=== PATIENT | female | born 1975 | race Caucasian/White ===

== ENCOUNTER 2022-02-27 18:32 | Emergency (ER) | payer SELFPAY ==
[~2022-02-27] VITALS: Ht 165.1 cm; Wt 104.0 kg
[2022-02-27 21:54] VITALS: BP 157/87
[2022-02-27 22:01] VITALS: BP 147/85
[2022-02-27 22:31] LABS: URINE BILIRUBIN - DIPSTICK NEGATIVE (NEGATIVE); URINE BLOOD DIPSTICK NEGATIVE (NEGATIVE); URINE COLOR YELLOW; URINE GLUCOSE - DIPSTICK NEGATIVE (NEGATIVE); URINE KETONE 40 mg/dL (NEGATIVE); URINE LEUK ESTERASE NEGATIVE (NEGATIVE); URINE PROTEIN - DIPSTICK TRACE mg/dL (NEG-TRACE); URINE SPECIFIC GRAVITY >=1.030; URINE UROBILINOGEN - DIPSTICK 0.2 E.U./dL (0.2)
[2022-02-27 22:37] LABS: URINE NITRITE - DIPSTICK NEGATIVE (Negative)
[2022-02-27] MEDS ORDERED: TAM75CAP PO (23:48)
[2022-02-27] MEDS ORDERED: AMOX/K CLAV875 M1 PO (23:52)
[2022-02-27] MEDS ORDERED: FLOXIN OTIC0.3 % AD (23:52)
[2022-02-28 00:30] VITALS: BP 132/70
[2022-02-28] MEDS ORDERED: ALBUTEROL SUL0.083 % IN (04:15)
[2022-02-28] MEDS ORDERED: AMOUR (04:16)
== END 2022-02-28 00:30 | disposition home or self-care (01) | DRG 195 ==
LOC: ED 18:32
PROVIDERS: Emergency Medicine
DX: J10.1 Influenza due to other identified influenza virus with other respiratory manifestations (principal); H66.93 Otitis media, unspecified, bilateral

== ENCOUNTER 2022-06-17 08:26 | Emergency (ER) | payer OTHER ==
[~2022-06-17] VITALS: Ht 165.1 cm; Wt 98.4 kg
[~2022-06-17 08:26] MED LIST: ALBUTEROL SUL0.083 % IN; AMOUR; AMOX/K CLAV875 M1 PO; FLOXIN OTIC0.3 % AD; TAM75CAP PO
[2022-06-17 09:18] VITALS: BP 125/78
[2022-06-17 10:40] VITALS: BP 125/78
== END 2022-06-17 10:58 | disposition home or self-care (01) ==
LOC: ED 08:26
DX: J06.9 Acute upper respiratory infection, unspecified (principal); J45.909 Unspecified asthma, uncomplicated; E06.3 Autoimmune thyroiditis; Z20.822 Contact with and (suspected) exposure to COVID-19

== ENCOUNTER 2023-10-24 09:35 | Emergency (ER) | payer SELFPAY ==
[~2023-10-24] VITALS: Ht 165.1 cm; Wt 104.6 kg
[~2023-10-24 09:35] MED LIST changes: +ROBITUSSIN AC10 ML PO
[2023-10-24 09:41] VITALS: BP 146/89
[2023-10-24] MEDS ORDERED: methylPREDNISolone SODIUM SUCC 125 MG/2 ML SDV IV ONE (09:45)
[2023-10-24] MEDS ORDERED: IPRATROPIUM-Albuterol 0.5MG-2.5MG/3 ML NEB ONE ×2 (09:45)
[2023-10-24 10:13] VITALS: BP 146/88
[2023-10-24 10:16] VITALS: BP 160/89
[2023-10-24 10:18] VITALS: BP 154/91
[2023-10-24 10:32] LABS: BASO% 0.6 % (0-3); EOS% 9.1 % (0-8); HEMATOCRIT 43.7 % (37.0-47.0); IMMATURE GRANULOCYTES 0.3 % (0.0-5.0); LYMPH% 20.9 % (15-41); MEAN CELL VOLUME 84.9 fL CALC (80.0-100.0); MEAN CORPUSCULAR HGB 27.2 pG CALC (26.0-32.0); MONO% 6.3 % (2-13); NEUT# 4.98 thou/uL (2.00-7.15); NEUT% 62.8 % (42-76); RED BLOOD COUNT 5.15 mill/uL (4.20-5.60); RED CELL DISTRI WIDTH 13.9 % (11.5-15.5)
[2023-10-24 10:48] LABS: ALBUMIN 4.6 g/dL (3.2-5.0); ALKALINE PHOSPHATASE 58 u/l (38-126); ANION GAP 10 (6-22 (CALC)); BILIRUBIN, TOTAL 0.5 mg/dL (0.02-1.3); BUN 7 mg/dL (7-17); BUN/CREATININE RATIO 11 (12-20 (CALC)); CARBON DIOXIDE 23 mmol/l (22-30); CHLORIDE 110 mmol/l (95-108); CREATININE 0.7 mg/dL (0.5-1.0); ESTIMATED GFR 107 ML/MIN (>=90 (CALC)); POTASSIUM 4.5 mmol/l (3.5-5.1); SGOT/AST 46 u/l (14-36); SODIUM 139 mmol/l (137-146); TOTAL PROTEIN 7.8 g/dL (6.3-8.2)
[2023-10-24] MEDS ORDERED: PREDNISONE50 MG PO (11:42)
[2023-10-24] MEDS ORDERED: IPRATROPIU0.5 MG/3 M IN (11:42)
[2023-10-24] MEDS ORDERED: ZPAK PO (11:42)
[2023-10-24 11:47] VITALS: BP 154/91
== END 2023-10-24 11:47 | disposition home or self-care (01) | DRG 203 ==
LOC: ED 09:35
PROVIDERS: Family Medicine
DX: J45.901 Unspecified asthma with (acute) exacerbation (principal); E66.9 Obesity, unspecified

== ENCOUNTER 2023-10-30 08:39 | Emergency (ER) | payer SELFPAY ==
[~2023-10-30] VITALS: Ht 165.1 cm; Wt 101.0 kg
[~2023-10-30 08:39] MED LIST changes: +IPRATROPIU0.5 MG/3 M IN; +PREDNISONE50 MG PO; +ZPAK PO
[2023-10-30 08:51] VITALS: BP 196/123
[2023-10-30] MEDS ORDERED: KETOROLAC TROMETHAMINE 30 MG/ML SDV IV ONE (09:05)
[2023-10-30 09:39] LABS: BASO% 0.3 % (0-3); EOS% 0.5 % (0-8); HEMOGLOBIN 13.7 g/dl (12.0-16.0); IMMATURE GRANULOCYTES 1.5 % (0.0-5.0); LYMPH% 18.6 % (15-41); MEAN CELL VOLUME 85.1 fL CALC (80.0-100.0); MEAN CORPUSCULAR HGB 27.1 pG CALC (26.0-32.0); MEAN CORPUSCULAR HGB CONC 31.9 g/dL CAL (32.0-36.0); MONO% 8.1 % (2-13); NEUT# 13.69 thou/uL (2.00-7.15); RED BLOOD COUNT 5.05 mill/uL (4.20-5.60); RED CELL DISTRI WIDTH 14.2 % (11.5-15.5)
[2023-10-30 09:41] LABS: URINE BILIRUBIN - DIPSTICK Negative (NEGATIVE); URINE BLOOD DIPSTICK Large (NEGATIVE); URINE GLUCOSE - DIPSTICK Negative (NEGATIVE); URINE KETONE Negative (NEGATIVE); URINE LEUK ESTERASE Negative (NEGATIVE); URINE NITRITE - DIPSTICK Negative (Negative); URINE PH 5.5 (4.5-8.0); URINE PROTEIN - DIPSTICK Negative (NEG-TRACE); URINE SPECIFIC GRAVITY >=1.030; URINE UROBILINOGEN - DIPSTICK 0.2 E.U./dL (0.2)
[2023-10-30 09:48] VITALS: BP 180/82
[2023-10-30 09:50] LABS: ALBUMIN 4.4 g/dL (3.2-5.0); BILIRUBIN, TOTAL 0.4 mg/dL (0.02-1.3); CREATININE 1.1 mg/dL (0.5-1.0); POTASSIUM 3.6 mmol/l (3.5-5.1); TOTAL PROTEIN 7.5 g/dL (6.3-8.2)
[2023-10-30 09:59] LABS: URINE COLOR Yellow
[2023-10-30 10:02] LABS: URINE EPITHELIAL CELLS FEW EPI/hpf (0-FEW); URINE RBC 25-50 RBC/hpf (0-5)
[2023-10-30 10:15] VITALS: BP 175/107
[2023-10-30 10:30] VITALS: BP 175/102
[2023-10-30 10:45] VITALS: BP 188/117
[2023-10-30] MEDS ORDERED: TRAMADOL HYDROC50 M1 PO (11:03)
[2023-10-30] MEDS ORDERED: ZOFRAN4 MG/TAB PO (11:03)
[2023-10-30] MEDS ORDERED: TAMSULOSIN0.4 MG PO (11:03)
[2023-10-30] MEDS ORDERED: TORADOL PO (11:03)
[2023-10-30] MEDS ORDERED: MORPHINE SULFATE 4 MG/ML VIAL IV ONE (11:05)
[2023-10-30 11:23] VITALS: BP 173/111
== END 2023-10-30 11:30 | disposition home or self-care (01) | DRG 694 ==
LOC: ED 08:39
PROVIDERS: Family Medicine
DX: N20.1 Calculus of ureter (principal); E06.3 Autoimmune thyroiditis; J45.909 Unspecified asthma, uncomplicated